=== PATIENT | male | born 2000 | race Caucasian/White ===

== ENCOUNTER 2019-03-06 17:05 | Emergency (ER) | payer BC ==
[~2019-03-06] VITALS: Ht 177.8 cm; Wt 68.0 kg
--- NOTE | 2019-03-06 17:32 | NUR ---
EDWIN CAMPBELL AT BEDSIDE FOR MSE.
--- NOTE | 2019-03-06 18:39 | NUR ---
Patient discharged to home in stable conditon. Written and verbal after care instructions given. Patient and caregiver from facility verbalized understanding of instructions.
[2019-03-06 18:40] VITALS: BP 105/74
== END 2019-03-06 18:42 | disposition home or self-care (01) ==
LOC: ER 17:05
DX: Z48.01 Encounter for change or removal of surgical wound dressing (principal); Z79.899 Other long term (current) drug therapy
CPT/HCPCS: 87070; A4217; A4663

== ENCOUNTER 2019-03-08 18:49 | Emergency (ER) | payer BC ==
[~2019-03-08] VITALS: Ht 177.8 cm; Wt 72.6 kg
[2019-03-08] MEDS ORDERED: SUBOXONE PO (19:11)
[2019-03-08] MEDS ORDERED: SULF1TAB48 PO (19:11)
[2019-03-08] MEDS ORDERED: DIAZ10TA PO (19:11)
[2019-03-08 19:39] VITALS: BP 115/62
--- NOTE | 2019-03-08 19:39 | NUR ---
Patient discharged to home in stable conditon. Written and verbal after care instructions given. Patient verbalizes understanding of instructions. walked out of er with no distress noted
== END 2019-03-08 19:40 | disposition home or self-care (01) ==
LOC: ER 18:50
DX: Z48.01 Encounter for change or removal of surgical wound dressing (principal); M79.605 Pain in left leg; Z79.899 Other long term (current) drug therapy
CPT/HCPCS: A4663